=== PATIENT | female | born 1940 | race Caucasian/White ===

== ENCOUNTER 2020-11-17 22:22 | Inpatient (IN) ==
[2020-11-18] MEDS ORDERED: Naloxone 0.4 MG/ML INJ IVP PRN (03:13)
[2020-11-18] MEDS: Ipratropium 1 PUFF INHALER IH SCH ×4 (04:21→20:46)
[2020-11-18 08:57] LABS: Mean Platelet Volume 10.6 fL (9.4-12.4); Red Cell Distribution Width 13.9 % (11.5-14.5)
[2020-11-18 08:58] LABS: Hematocrit 31.4 % (35.3-44.9); Hemoglobin 10.3 g/dL (11.5-15.4); Mean Corpuscular HGB Conc 32.8 g/dL (31.6-35.5); Mean Corpuscular Hemoglobin 28.4 pg (28.0-33.3); Mean Corpuscular Volume 86.5 fL (83.0-100.0); Platelet Count 282 K/mcL (140-400); Red Blood Count 3.63 M/mcL (3.82-4.97); White Blood Count 28.3 K/mcL (4.3-11.1)
[2020-11-18 09:27] LABS: Troponin I 2.22 ng/mL (< 0.04)
[2020-11-18 09:28] LABS: Albumin 3.2 g/dL (3.5-5.7); Albumin/Globulin Ratio 1.1 (1.1-2.2); Bilirubin,Direct 0.1 mg/dL (0.0-0.2); Bilirubin,Indirect 0.2 mg/dL (0.0-1.0); Bilirubin,Total 0.3 mg/dL (0.3-1.0); Globulin 2.9 g/dL (2.4-3.5); Magnesium 1.4 mg/dL (1.6-2.6); Potassium 3.1 mEq/L (3.5-5.1); Total Protein 6.1 g/dL (6.4-8.9)
[2020-11-18 09:44] LABS: Lymphocytes # 1.7 K/mcL (0.6-4.6); Monocytes # 0.6 K/mcL (0.0-1.3); Neutrophils # 25.5 K/mcL (1.6-8.9); Platelet Estimate Normal (Normal)
[2020-11-18] MEDS ORDERED: Perflutren Lipid Microsphere 1.3 ML in 0.9 % Sodium Chloride 8.7 ML IVP PRN (17:48)
[2020-11-19] MEDS: Ipratropium 1 PUFF INHALER IH SCH ×4 (04:33→21:36)
[2020-11-19 08:29] LABS: Troponin I 0.67 ng/mL (< 0.04)
[2020-11-19] MEDS: *HR* Enoxaparin 30 MG/0.3 ML SYRINGE SQ SCH ×2 (09:04→17:38)
[2020-11-19 09:16] LABS: Basophils # 0.1 K/mcL (0.0-0.2); Basophils % 0.3 %; Eosinophils % 0.2 %; Hematocrit 32.3 % (35.3-44.9); Immature Granulocytes % 1.6 % (0-4); Lymphocytes # 0.6 K/mcL (0.6-4.6); Lymphocytes % 3.8 %; Mean Corpuscular Hemoglobin 27.4 pg (28.0-33.3); Mean Corpuscular Volume 88.5 fL (83.0-100.0); Mean Platelet Volume 10.8 fL (9.4-12.4); Monocytes # 0.9 K/mcL (0.0-1.3); Monocytes % 5.6 %; Neutrophils # 14.2 K/mcL (1.6-8.9); Platelet Count 303 K/mcL (140-400); Red Blood Count 3.65 M/mcL (3.82-4.97); Segmented Neutrophils % 88.5 %
[2020-11-19 11:40] LABS: Albumin 3.2 g/dL (3.5-5.7); Albumin/Globulin Ratio 1.1 (1.1-2.2); Bilirubin,Total 0.4 mg/dL (0.3-1.0); Calcium 8.5 mg/dL (8.6-10.3); Globulin 2.8 g/dL (2.4-3.5); Potassium 3.4 mEq/L (3.5-5.1)
[2020-11-19 12:05] LABS: C-Reactive Protein 99 mg/L (Less than 10); Lactate Dehydrogenase 234 Units/L (140-271)
[2020-11-19] MEDS: Cyanocobalamin (B-12) 1,000 MCG TABLET PO SCH (12:16)
[2020-11-19 12:24] LABS: Ferritin 1032 ng/mL (10-120)
[2020-11-19] MEDS ORDERED: *HR* Digoxin 0.5 MG/2 ML AMPUL IVP SCH (12:30)
[2020-11-19] MEDS: Aspirin Enteric Coated 81 MG Tablet PO SCH (13:46)
[2020-11-19] MEDS ORDERED: *HR* Digoxin 0.5 MG/2 ML AMPUL IVP ONE (23:00)
[2020-11-20] MEDS: Ipratropium 1 PUFF INHALER IH SCH ×4 (04:59→20:40)
[2020-11-20] MEDS: *HR* Enoxaparin 30 MG/0.3 ML SYRINGE SQ SCH ×2 (06:25→18:22)
[2020-11-20] MEDS: Aspirin Enteric Coated 81 MG Tablet PO SCH (09:20)
[2020-11-20] MEDS: hydroCHLOROthiazide 25 MG TABLET PO SCH (09:21)
[2020-11-20] MEDS: Cyanocobalamin (B-12) 1,000 MCG TABLET PO SCH (09:21)
[2020-11-20 10:09] LABS: Basophils # 0.1 K/mcL (0.0-0.2); Basophils % 0.8 %; Hematocrit 32.7 % (35.3-44.9); Hemoglobin 10.4 g/dL (11.5-15.4); Immature Granulocytes % 4.9 % (0-4); Lymphocytes # 0.5 K/mcL (0.6-4.6); Lymphocytes % 5.1 %; Mean Corpuscular HGB Conc 31.8 g/dL (31.6-35.5); Mean Corpuscular Hemoglobin 27.5 pg (28.0-33.3); Mean Corpuscular Volume 86.5 fL (83.0-100.0); Mean Platelet Volume 10.3 fL (9.4-12.4); Monocytes # 0.8 K/mcL (0.0-1.3); Monocytes % 8.5 %; Neutrophils # 7.2 K/mcL (1.6-8.9); Platelet Count 305 K/mcL (140-400); Red Blood Count 3.78 M/mcL (3.82-4.97); Segmented Neutrophils % 80.7 %; White Blood Count 8.9 K/mcL (4.3-11.1)
[2020-11-20 10:30] LABS: Albumin 3.1 g/dL (3.5-5.7); Bilirubin,Total 0.4 mg/dL (0.3-1.0); Calcium 8.7 mg/dL (8.6-10.3); Potassium 3.2 mEq/L (3.5-5.1); Total Protein 6.1 g/dL (6.4-8.9)
[2020-11-20] MEDS: Melatonin 3 MG TABLET PO PRN (23:03)
[2020-11-21] MEDS: Ipratropium 1 PUFF INHALER IH SCH ×4 (05:02→20:57)
[2020-11-21] MEDS: *HR* Enoxaparin 30 MG/0.3 ML SYRINGE SQ SCH ×2 (06:05→22:03)
[2020-11-21] MEDS: Aspirin Enteric Coated 81 MG Tablet PO SCH (10:06)
[2020-11-21] MEDS: hydroCHLOROthiazide 25 MG TABLET PO SCH (10:06)
[2020-11-21] MEDS: Cyanocobalamin (B-12) 1,000 MCG TABLET PO SCH (10:07)
[2020-11-21] MEDS: Melatonin 3 MG TABLET PO PRN (22:05)
[2020-11-22] MEDS: Ipratropium 1 PUFF INHALER IH SCH ×4 (04:42→20:45)
[2020-11-22] MEDS: *HR* Enoxaparin 30 MG/0.3 ML SYRINGE SQ SCH ×2 (05:29→18:26)
[2020-11-22 08:48] LABS: BUN/Creatinine Ratio 45 (6-26); Blood Urea Nitrogen 37 mg/dL (8-23); Calcium 8.8 mg/dL (8.6-10.3); Carbon Dioxide 36 mEq/L (23-29); Chloride 93 mEq/L (98-107); Glucose 105 mg/dL (70-105); Osmolality,Calculated 287 (280-300); Potassium 3.7 mEq/L (3.5-5.1); Sodium 134 mEq/L (136-145); eGFR For African Americans > 60 (> 60); eGFR For Non-African Americans > 60 (> 60)
[2020-11-22] MEDS: hydroCHLOROthiazide 25 MG TABLET PO SCH (09:37)
[2020-11-22] MEDS: Cyanocobalamin (B-12) 1,000 MCG TABLET PO SCH (09:38)
[2020-11-22] MEDS: Aspirin Enteric Coated 81 MG Tablet PO SCH (09:38)
[2020-11-22] MEDS: Melatonin 3 MG TABLET PO PRN (21:03)
[2020-11-22 22:18] LABS: Bacteria,Urine Moderate per hpf (None-Few); Bilirubin,Urine Negative (Negative); Blood,Urine Small (Negative); Budding Yeast,Urine Few per hpf (None Seen); Clarity,Urine Turbid (Clear); Color,Urine Yellow (Yellow); Glucose,Urine (UA) Normal (Normal); Ketones,Urine Negative (Negative); Leukocyte Esterase,Urine Large (Negative); Nitrite,Urine Negative (Negative); PH,Urine 6.5 pH Units (5.0-8.0); Protein,Urine 30 mg/dL (Neg-Trace); Renal Epithelial Cells,Urine Few per hpf (None-Few); Specific Gravity,Urine 1.019 (1.010-1.025); Squamous Epithelial Cell,Urine Few per hpf (None-Few); Transitional Epi Cells,Urine Few per hpf (None-Few); Urobilinogen,Urine Normal (Normal); WBC,Urine TNTC per hpf (0-3)
[2020-11-22] MEDS: cephALEXin 500 MG CAPSULE PO SCH (23:33)
[2020-11-23] MEDS: Ipratropium 1 PUFF INHALER IH SCH ×4 (03:46→20:29)
[2020-11-23] MEDS: *HR* Enoxaparin 30 MG/0.3 ML SYRINGE SQ SCH ×2 (05:35→16:33)
[2020-11-23 08:06] LABS: BUN/Creatinine Ratio 47 (6-26); Blood Urea Nitrogen 35 mg/dL (8-23); Calcium 8.7 mg/dL (8.6-10.3); Carbon Dioxide 33 mEq/L (23-29); Chloride 93 mEq/L (98-107); Glucose 88 mg/dL (70-105); Osmolality,Calculated 283 (280-300); Potassium 3.9 mEq/L (3.5-5.1); Sodium 133 mEq/L (136-145); eGFR For African Americans > 60 (> 60); eGFR For Non-African Americans > 60 (> 60)
[2020-11-23] MEDS: Aspirin Enteric Coated 81 MG Tablet PO SCH (10:21)
[2020-11-23] MEDS: Cyanocobalamin (B-12) 1,000 MCG TABLET PO SCH (10:21)
[2020-11-23] MEDS: cephALEXin 500 MG CAPSULE PO SCH ×2 (10:21→20:11)
[2020-11-23] MEDS: hydroCHLOROthiazide 25 MG TABLET PO SCH (10:22)
[2020-11-23] MEDS ORDERED: *HR* Metoprolol 5 MG/5 ML VIAL IVP ONE (14:35)
[2020-11-23] MEDS ORDERED: *HR* Metoprolol 5 MG/5 ML VIAL IVP STA (14:37)
[2020-11-23] MEDS ORDERED: ALPRAZolam 0.5 MG TABLET PO ONE (14:44)
[2020-11-23 19:11] LABS: Magnesium 1.6 mg/dL (1.6-2.6)
[2020-11-23] MEDS: Melatonin 3 MG TABLET PO PRN (20:11)
[2020-11-24] MEDS: Ipratropium 1 PUFF INHALER IH SCH ×4 (04:33→19:43)
[2020-11-24] MEDS: *HR* Enoxaparin 30 MG/0.3 ML SYRINGE SQ SCH ×2 (05:29→17:27)
[2020-11-24] MEDS: Aspirin Enteric Coated 81 MG Tablet PO SCH (08:58)
[2020-11-24] MEDS: Cyanocobalamin (B-12) 1,000 MCG TABLET PO SCH (08:58)
[2020-11-24] MEDS: hydroCHLOROthiazide 25 MG TABLET PO SCH (08:58)
[2020-11-24] MEDS: cephALEXin 500 MG CAPSULE PO SCH ×2 (08:58→20:07)
[2020-11-24] MEDS ORDERED: *HR* Metoprolol 5 MG/5 ML VIAL IVP ONE (13:15)
[2020-11-24] MEDS: *HR* Metoprolol 5 MG/5 ML VIAL IVP PRN (13:26)
[2020-11-24 15:32] LABS: C-Reactive Protein 23 mg/L (Less than 10); Lactate Dehydrogenase 343 Units/L (140-271)
[2020-11-24 17:43] LABS: Ferritin 926 ng/mL (10-120)
[2020-11-25] MEDS: Ipratropium 1 PUFF INHALER IH SCH ×4 (04:16→20:23)
[2020-11-25] MEDS: *HR* Enoxaparin 30 MG/0.3 ML SYRINGE SQ SCH ×2 (05:58→18:02)
[2020-11-25 06:50] LABS: Hematocrit 37.6 % (35.3-44.9); Hemoglobin 11.6 g/dL (11.5-15.4); Mean Corpuscular HGB Conc 30.9 g/dL (31.6-35.5); Mean Corpuscular Volume 87.4 fL (83.0-100.0); Mean Platelet Volume 11.2 fL (9.4-12.4); Platelet Count 173 K/mcL (140-400); Red Cell Distribution Width 13.8 % (11.5-14.5)
[2020-11-25 07:12] LABS: BUN/Creatinine Ratio 52 (6-26); Blood Urea Nitrogen 36 mg/dL (8-23); Calcium 8.5 mg/dL (8.6-10.3); Carbon Dioxide 33 mEq/L (23-29); Chloride 94 mEq/L (98-107); Glucose 81 mg/dL (70-105); Osmolality,Calculated 283 (280-300); Sodium 133 mEq/L (136-145); eGFR For African Americans > 60 (> 60); eGFR For Non-African Americans > 60 (> 60)
[2020-11-25 07:13] LABS: Lactate Dehydrogenase 352 Units/L (140-271)
[2020-11-25 07:27] LABS: Ferritin 898 ng/mL (10-120)
[2020-11-25] MEDS: cephALEXin 500 MG CAPSULE PO SCH ×2 (07:36→20:17)
[2020-11-25] MEDS: Cyanocobalamin (B-12) 1,000 MCG TABLET PO SCH (07:37)
[2020-11-25] MEDS: hydroCHLOROthiazide 25 MG TABLET PO SCH (07:37)
[2020-11-25] MEDS: Aspirin Enteric Coated 81 MG Tablet PO SCH (07:37)
[2020-11-25 12:03] LABS: C-Reactive Protein 23 mg/L (Less than 10)
[2020-11-25] MEDS: Melatonin 3 MG TABLET PO PRN (22:41)
[2020-11-26] MEDS: Ipratropium 1 PUFF INHALER IH SCH ×4 (03:58→20:09)
[2020-11-26] MEDS: *HR* Enoxaparin 30 MG/0.3 ML SYRINGE SQ SCH ×2 (05:14→17:15)
[2020-11-26] MEDS: *HR* HYDROcodone/Acet 5/325 mg TABLET PO PRN ×2 (05:25→21:17)
[2020-11-26 07:40] LABS: Lactate Dehydrogenase 386 Units/L (140-271)
[2020-11-26 07:53] LABS: Ferritin 773 ng/mL (10-120)
[2020-11-26 09:09] LABS: C-Reactive Protein 17 mg/L (Less than 10)
[2020-11-26] MEDS: Cyanocobalamin (B-12) 1,000 MCG TABLET PO SCH (09:58)
[2020-11-26] MEDS: hydroCHLOROthiazide 25 MG TABLET PO SCH (09:58)
[2020-11-26] MEDS: cephALEXin 500 MG CAPSULE PO SCH ×2 (09:58→21:17)
[2020-11-26] MEDS: Aspirin Enteric Coated 81 MG Tablet PO SCH (09:58)
[2020-11-26] MEDS ORDERED: Saline Nasal Spray 44 ML BOTTLE NS PRN (17:09)
[2020-11-26] MEDS: Melatonin 3 MG TABLET PO PRN (21:20)
[2020-11-27] MEDS: Ipratropium 1 PUFF INHALER IH SCH ×5 (04:08→20:27)
[2020-11-27] MEDS: *HR* Enoxaparin 30 MG/0.3 ML SYRINGE SQ SCH ×2 (05:26→18:16)
[2020-11-27] MEDS: Cyanocobalamin (B-12) 1,000 MCG TABLET PO SCH (08:15)
[2020-11-27] MEDS: cephALEXin 500 MG CAPSULE PO SCH (08:15)
[2020-11-27] MEDS: Aspirin Enteric Coated 81 MG Tablet PO SCH (08:15)
[2020-11-27] MEDS: hydroCHLOROthiazide 25 MG TABLET PO SCH (08:15)
[2020-11-27] MEDS: *HR* LORazepam 0.5 MG TABLET PO PRN ×2 (09:59→18:16)
[2020-11-27] MEDS ORDERED: Dexmedetomidine HCl 400 MCG/100 ML MLS IVC SCH (10:45)
[2020-11-27 12:01] LABS: Hematocrit 34.9 % (35.3-44.9); Hemoglobin 11.2 g/dL (11.5-15.4); Mean Corpuscular HGB Conc 32.1 g/dL (31.6-35.5); Mean Corpuscular Volume 87.3 fL (83.0-100.0); Mean Platelet Volume 11.7 fL (9.4-12.4); Platelet Count 239 K/mcL (140-400); Red Cell Distribution Width 13.9 % (11.5-14.5)
[2020-11-27] MEDS: *HR* HYDROcodone/Acet 5/325 mg TABLET PO PRN ×2 (12:10→18:15)
[2020-11-27 12:14] LABS: BUN/Creatinine Ratio 45 (6-26); Blood Urea Nitrogen 38 mg/dL (8-23); Calcium 8.2 mg/dL (8.6-10.3); Carbon Dioxide 29 mEq/L (23-29); Chloride 94 mEq/L (98-107); Glucose 113 mg/dL (70-105); Osmolality,Calculated 278 (280-300); Potassium 4.7 mEq/L (3.5-5.1); Sodium 129 mEq/L (136-145); eGFR For African Americans > 60 (> 60); eGFR For Non-African Americans > 60 (> 60)
[2020-11-27] MEDS ORDERED: Isovue-370 500 ML BOTTLE IVP ONE (12:37)
[2020-11-28] MEDS: Ipratropium 1 PUFF INHALER IH SCH ×4 (03:40→21:23)
[2020-11-28] MEDS: *HR* LORazepam 0.5 MG TABLET PO PRN ×2 (04:30→15:34)
[2020-11-28] MEDS: Saliva Stimulant 44.3ml BOTTLE PO PRN (04:36)
[2020-11-28] MEDS: *HR* Enoxaparin 30 MG/0.3 ML SYRINGE SQ SCH ×2 (07:02→18:09)
[2020-11-28 07:12] LABS: Hematocrit 33.9 % (35.3-44.9); Hemoglobin 10.9 g/dL (11.5-15.4); Mean Corpuscular HGB Conc 32.2 g/dL (31.6-35.5); Mean Corpuscular Volume 87.1 fL (83.0-100.0); Mean Platelet Volume 11.5 fL (9.4-12.4); Platelet Count 275 K/mcL (140-400); Red Blood Count 3.89 M/mcL (3.82-4.97); Red Cell Distribution Width 14.1 % (11.5-14.5); White Blood Count 21.5 K/mcL (4.3-11.1)
[2020-11-28 07:36] LABS: BUN/Creatinine Ratio 49 (6-26); Blood Urea Nitrogen 39 mg/dL (8-23); Calcium 8.4 mg/dL (8.6-10.3); Carbon Dioxide 27 mEq/L (23-29); Chloride 95 mEq/L (98-107); Glucose 80 mg/dL (70-105); Lactate Dehydrogenase 297 Units/L (140-271); Osmolality,Calculated 276 (280-300); Potassium 4.7 mEq/L (3.5-5.1); Sodium 129 mEq/L (136-145); eGFR For African Americans > 60 (> 60); eGFR For Non-African Americans > 60 (> 60)
[2020-11-28 07:48] LABS: Ferritin 726 ng/mL (10-120)
[2020-11-28 09:30] LABS: C-Reactive Protein 16 mg/L (Less than 10)
[2020-11-28] MEDS: Piperacillin/Tazobactam 3.375 GM in 0.9 % Sodium Chloride Mini Bag 100 ML IVPB SCH ×2 (09:35→15:33)
[2020-11-28] MEDS: Cyanocobalamin (B-12) 1,000 MCG TABLET PO SCH (13:06)
[2020-11-28] MEDS: Aspirin Enteric Coated 81 MG Tablet PO SCH (13:06)
[2020-11-29] MEDS: Piperacillin/Tazobactam 3.375 GM in 0.9 % Sodium Chloride Mini Bag 100 ML IVPB SCH ×3 (00:57→18:05)
[2020-11-29] MEDS: *HR* LORazepam 2 MG/ML VIAL IVP PRN (01:21)
[2020-11-29] MEDS: Ipratropium 1 PUFF INHALER IH SCH ×4 (03:47→22:06)
[2020-11-29] MEDS: *HR* Enoxaparin 30 MG/0.3 ML SYRINGE SQ SCH ×2 (05:23→18:05)
[2020-11-29 05:30] LABS: Hematocrit 34.4 % (35.3-44.9); Mean Corpuscular Hemoglobin 27.5 pg (28.0-33.3); Mean Platelet Volume 11.4 fL (9.4-12.4); Platelet Count 303 K/mcL (140-400); White Blood Count 18.9 K/mcL (4.3-11.1)
[2020-11-29 05:51] LABS: BUN/Creatinine Ratio 41 (6-26); Blood Urea Nitrogen 31 mg/dL (8-23); Calcium 8.4 mg/dL (8.6-10.3); Carbon Dioxide 29 mEq/L (23-29); Chloride 96 mEq/L (98-107); Glucose 88 mg/dL (70-105); Osmolality,Calculated 280 (280-300); Potassium 4.1 mEq/L (3.5-5.1); Sodium 132 mEq/L (136-145); eGFR For African Americans > 60 (> 60); eGFR For Non-African Americans > 60 (> 60)
[2020-11-29] MEDS: Aspirin Enteric Coated 81 MG Tablet PO SCH (10:44)
[2020-11-29] MEDS: Cyanocobalamin (B-12) 1,000 MCG TABLET PO SCH (10:45)
[2020-11-30] MEDS: Piperacillin/Tazobactam 3.375 GM in 0.9 % Sodium Chloride Mini Bag 100 ML IVPB SCH ×4 (04:16→19:51)
[2020-11-30] MEDS: Ipratropium 1 PUFF INHALER IH SCH ×4 (04:55→21:30)
[2020-11-30] MEDS: *HR* Enoxaparin 30 MG/0.3 ML SYRINGE SQ SCH ×2 (05:43→16:45)
[2020-11-30 08:17] LABS: Hematocrit 34.4 % (35.3-44.9); Mean Corpuscular Hemoglobin 27.4 pg (28.0-33.3); Mean Corpuscular Volume 85.6 fL (83.0-100.0); Mean Platelet Volume 12.5 fL (9.4-12.4); Platelet Count 337 K/mcL (140-400); Red Blood Count 4.02 M/mcL (3.82-4.97); Red Cell Distribution Width 14.1 % (11.5-14.5); White Blood Count 19.4 K/mcL (4.3-11.1)
[2020-11-30 08:39] LABS: BUN/Creatinine Ratio 38 (6-26); Blood Urea Nitrogen 27 mg/dL (8-23); Calcium 8.4 mg/dL (8.6-10.3); Carbon Dioxide 27 mEq/L (23-29); Chloride 97 mEq/L (98-107); Glucose 113 mg/dL (70-105); Osmolality,Calculated 280 (280-300); Potassium 3.5 mEq/L (3.5-5.1); Sodium 132 mEq/L (136-145); eGFR For African Americans > 60 (> 60); eGFR For Non-African Americans > 60 (> 60)
[2020-11-30] MEDS: *HR* Metoprolol 5 MG/5 ML VIAL IVP PRN (10:00)
[2020-11-30] MEDS: Cyanocobalamin (B-12) 1,000 MCG TABLET PO SCH (11:12)
[2020-11-30] MEDS: Aspirin Enteric Coated 81 MG Tablet PO SCH (11:12)
[2020-11-30] MEDS: Melatonin 3 MG TABLET PO PRN (22:54)
[2020-12-01] MEDS: Ipratropium 1 PUFF INHALER IH SCH ×4 (04:02→22:06)
[2020-12-01] MEDS: *HR* Enoxaparin 30 MG/0.3 ML SYRINGE SQ SCH ×2 (05:15→17:13)
[2020-12-01] MEDS: Piperacillin/Tazobactam 3.375 GM in 0.9 % Sodium Chloride Mini Bag 100 ML IVPB SCH ×4 (05:15→23:26)
[2020-12-01 07:52] LABS: Hematocrit 32.9 % (35.3-44.9); Hemoglobin 10.5 g/dL (11.5-15.4); Mean Corpuscular HGB Conc 31.9 g/dL (31.6-35.5); Mean Corpuscular Hemoglobin 27.1 pg (28.0-33.3); Platelet Count 322 K/mcL (140-400); Red Blood Count 3.87 M/mcL (3.82-4.97); Red Cell Distribution Width 14.3 % (11.5-14.5); White Blood Count 13.4 K/mcL (4.3-11.1)
[2020-12-01 07:59] LABS: INR 1.1; Prothrombin Time 11.7 Seconds (9.4-12.1)
[2020-12-01 08:10] LABS: BUN/Creatinine Ratio 37 (6-26); Blood Urea Nitrogen 28 mg/dL (8-23); Calcium 8.2 mg/dL (8.6-10.3); Carbon Dioxide 27 mEq/L (23-29); Chloride 100 mEq/L (98-107); Glucose 92 mg/dL (70-105); Magnesium 1.5 mg/dL (1.6-2.6); Osmolality,Calculated 283 (280-300); Phosphorous 2.5 mg/dL (2.7-4.5); Potassium 3.9 mEq/L (3.5-5.1); Sodium 134 mEq/L (136-145); eGFR For African Americans > 60 (> 60); eGFR For Non-African Americans > 60 (> 60)
[2020-12-01] MEDS: Aspirin Enteric Coated 81 MG Tablet PO SCH (08:17)
[2020-12-01] MEDS: Cyanocobalamin (B-12) 1,000 MCG TABLET PO SCH (08:17)
[2020-12-01] MEDS: *HR* LORazepam 2 MG/ML VIAL IVP PRN (08:18)
[2020-12-01] MEDS: Melatonin 3 MG TABLET PO PRN (21:04)
[2020-12-02] MEDS: Ipratropium 1 PUFF INHALER IH SCH ×4 (03:50→20:34)
[2020-12-02] MEDS: Piperacillin/Tazobactam 3.375 GM in 0.9 % Sodium Chloride Mini Bag 100 ML IVPB SCH ×2 (06:25→16:13)
[2020-12-02] MEDS: *HR* Enoxaparin 30 MG/0.3 ML SYRINGE SQ SCH ×2 (06:31→17:08)
[2020-12-02 06:41] LABS: Basophils # 0.1 K/mcL (0.0-0.2); Basophils % 0.3 %; Eosinophils % 0.1 %; Hematocrit 33.4 % (35.3-44.9); Hemoglobin 10.7 g/dL (11.5-15.4); Immature Granulocytes % 2.8 % (0-4); Lymphocytes # 1.4 K/mcL (0.6-4.6); Lymphocytes % 9.7 %; Mean Corpuscular Hemoglobin 27.9 pg (28.0-33.3); Mean Platelet Volume 11.9 fL (9.4-12.4); Monocytes # 1.3 K/mcL (0.0-1.3); Monocytes % 8.5 %; Neutrophils # 11.6 K/mcL (1.6-8.9); Platelet Count 289 K/mcL (140-400); Red Blood Count 3.84 M/mcL (3.82-4.97); Red Cell Distribution Width 14.4 % (11.5-14.5); Segmented Neutrophils % 78.6 %; White Blood Count 14.8 K/mcL (4.3-11.1)
[2020-12-02 06:57] LABS: BUN/Creatinine Ratio 35 (6-26); Blood Urea Nitrogen 27 mg/dL (8-23); Calcium 8.2 mg/dL (8.6-10.3); Carbon Dioxide 27 mEq/L (23-29); Chloride 101 mEq/L (98-107); Glucose 91 mg/dL (70-105); Osmolality,Calculated 281 (280-300); Potassium 3.9 mEq/L (3.5-5.1); Sodium 133 mEq/L (136-145); eGFR For African Americans > 60 (> 60); eGFR For Non-African Americans > 60 (> 60)
[2020-12-02] MEDS: Cyanocobalamin (B-12) 1,000 MCG TABLET PO SCH (09:22)
[2020-12-02] MEDS: Aspirin Enteric Coated 81 MG Tablet PO SCH (09:22)
[2020-12-02] MEDS: *HR* Metoprolol 5 MG/5 ML VIAL IVP PRN (23:22)
[2020-12-02] MEDS: *HR* LORazepam 2 MG/ML VIAL IVP PRN (23:22)
[2020-12-03] MEDS: Ipratropium 1 PUFF INHALER IH SCH ×4 (04:07→21:00)
[2020-12-03 05:17] LABS: Basophils % 0.2 %; Eosinophils % 0.2 %; Hematocrit 30.8 % (35.3-44.9); Hemoglobin 10.1 g/dL (11.5-15.4); Immature Granulocytes % 1.8 % (0-4); Lymphocytes % 10.1 %; Mean Corpuscular HGB Conc 32.8 g/dL (31.6-35.5); Mean Corpuscular Hemoglobin 28.1 pg (28.0-33.3); Mean Corpuscular Volume 85.8 fL (83.0-100.0); Monocytes % 8.8 %; Neutrophils # 9.3 K/mcL (1.6-8.9); Platelet Count 260 K/mcL (140-400); Red Blood Count 3.59 M/mcL (3.82-4.97); Red Cell Distribution Width 14.2 % (11.5-14.5); Segmented Neutrophils % 78.9 %; White Blood Count 11.7 K/mcL (4.3-11.1)
[2020-12-03 05:18] LABS: Lymphocytes # 1.2 K/mcL (0.6-4.6)
[2020-12-03 05:38] LABS: BUN/Creatinine Ratio 41 (6-26); Blood Urea Nitrogen 26 mg/dL (8-23); Calcium 7.6 mg/dL (8.6-10.3); Carbon Dioxide 26 mEq/L (23-29); Chloride 103 mEq/L (98-107); Glucose 84 mg/dL (70-105); Osmolality,Calculated 282 (280-300); Potassium 3.6 mEq/L (3.5-5.1); Sodium 134 mEq/L (136-145); eGFR For African Americans > 60 (> 60); eGFR For Non-African Americans > 60 (> 60)
[2020-12-03] MEDS: Cyanocobalamin (B-12) 1,000 MCG TABLET PO SCH (08:59)
[2020-12-03] MEDS: Aspirin Enteric Coated 81 MG Tablet PO SCH (08:59)
[2020-12-04] MEDS: Morphine Sulfate Oral CONC 10 MG/0.5 ML ORAL.SYG SL PRN (01:28)
[2020-12-04] MEDS: *HR* LORazepam 2 MG/ML VIAL IVP PRN ×2 (01:29→21:40)
[2020-12-04] MEDS: Ipratropium 1 PUFF INHALER IH SCH ×4 (04:24→21:37)
[2020-12-04 06:04] LABS: BUN/Creatinine Ratio 48 (6-26); Blood Urea Nitrogen 31 mg/dL (8-23); Calcium 8.2 mg/dL (8.6-10.3); Carbon Dioxide 29 mEq/L (23-29); Chloride 103 mEq/L (98-107); Glucose 91 mg/dL (70-105); Osmolality,Calculated 286 (280-300); Potassium 4.2 mEq/L (3.5-5.1); Sodium 135 mEq/L (136-145); eGFR For African Americans > 60 (> 60); eGFR For Non-African Americans > 60 (> 60)
[2020-12-04 06:18] LABS: Basophils % 0.2 %; Eosinophils # 0.1 K/mcL (0.0-0.6); Eosinophils % 0.8 %; Hemoglobin 10.2 g/dL (11.5-15.4); Immature Granulocytes % 1.7 % (0-4); Lymphocytes # 1.3 K/mcL (0.6-4.6); Lymphocytes % 9.9 %; Mean Corpuscular HGB Conc 31.9 g/dL (31.6-35.5); Mean Corpuscular Volume 87.9 fL (83.0-100.0); Mean Platelet Volume 12.7 fL (9.4-12.4); Monocytes % 7.8 %; Neutrophils # 10.3 K/mcL (1.6-8.9); Platelet Count 265 K/mcL (140-400); Red Blood Count 3.64 M/mcL (3.82-4.97); Red Cell Distribution Width 14.5 % (11.5-14.5); Segmented Neutrophils % 79.6 %; White Blood Count 12.9 K/mcL (4.3-11.1)
[2020-12-04] MEDS: Aspirin Enteric Coated 81 MG Tablet PO SCH (09:33)
[2020-12-04] MEDS: Cyanocobalamin (B-12) 1,000 MCG TABLET PO SCH (09:33)
[2020-12-04] MEDS: Saliva Stimulant 44.3ml BOTTLE PO PRN (21:45)
[2020-12-05] MEDS: Morphine Sulfate Oral CONC 10 MG/0.5 ML ORAL.SYG SL PRN ×2 (04:02→12:11)
[2020-12-05] MEDS: Ipratropium 1 PUFF INHALER IH SCH ×4 (04:10→20:36)
[2020-12-05 06:55] LABS: Basophils % 0.1 %; Eosinophils # 0.2 K/mcL (0.0-0.6); Hematocrit 32.4 % (35.3-44.9); Hemoglobin 10.2 g/dL (11.5-15.4); Lymphocytes # 1.1 K/mcL (0.6-4.6); Lymphocytes % 6.2 %; Mean Corpuscular HGB Conc 31.5 g/dL (31.6-35.5); Mean Corpuscular Hemoglobin 27.7 pg (28.0-33.3); Mean Platelet Volume 12.3 fL (9.4-12.4); Monocytes # 0.9 K/mcL (0.0-1.3); Monocytes % 5.3 %; Neutrophils # 15.5 K/mcL (1.6-8.9); Platelet Count 197 K/mcL (140-400); Red Blood Count 3.68 M/mcL (3.82-4.97); Red Cell Distribution Width 14.6 % (11.5-14.5); Segmented Neutrophils % 86.4 %; White Blood Count 17.9 K/mcL (4.3-11.1)
[2020-12-05 07:05] LABS: BUN/Creatinine Ratio 68 (6-26); Blood Urea Nitrogen 36 mg/dL (8-23); Calcium 8.3 mg/dL (8.6-10.3); Carbon Dioxide 26 mEq/L (23-29); Chloride 105 mEq/L (98-107); Glucose 90 mg/dL (70-105); Osmolality,Calculated 290 (280-300); Potassium 4.8 mEq/L (3.5-5.1); Sodium 136 mEq/L (136-145); eGFR For African Americans > 60 (> 60); eGFR For Non-African Americans > 60 (> 60)
[2020-12-05] MEDS: Cyanocobalamin (B-12) 1,000 MCG TABLET PO SCH (08:58)
[2020-12-05] MEDS: Aspirin Enteric Coated 81 MG Tablet PO SCH (08:59)
[2020-12-05] MEDS: *HR* LORazepam 2 MG/ML VIAL IVP PRN (12:11)
[2020-12-06] MEDS: *HR* LORazepam 2 MG/ML VIAL IVP PRN ×3 (00:32→16:16)
[2020-12-06] MEDS: Ipratropium 1 PUFF INHALER IH SCH ×4 (04:32→22:45)
[2020-12-06 07:23] LABS: Basophils % 0.1 %; Eosinophils # 0.1 K/mcL (0.0-0.6); Eosinophils % 0.4 %; Hematocrit 32.6 % (35.3-44.9); Hemoglobin 10.1 g/dL (11.5-15.4); Immature Granulocytes % 0.7 % (0-4); Lymphocytes # 1.1 K/mcL (0.6-4.6); Lymphocytes % 5.9 %; Mean Corpuscular Volume 87.2 fL (83.0-100.0); Mean Platelet Volume 11.9 fL (9.4-12.4); Monocytes # 0.8 K/mcL (0.0-1.3); Monocytes % 4.3 %; Neutrophils # 16.5 K/mcL (1.6-8.9); Platelet Count 163 K/mcL (140-400); Red Blood Count 3.74 M/mcL (3.82-4.97); Red Cell Distribution Width 14.6 % (11.5-14.5); Segmented Neutrophils % 88.6 %; White Blood Count 18.6 K/mcL (4.3-11.1)
[2020-12-06 07:45] LABS: BUN/Creatinine Ratio 56 (6-26); Blood Urea Nitrogen 30 mg/dL (8-23); Calcium 8.5 mg/dL (8.6-10.3); Carbon Dioxide 29 mEq/L (23-29); Chloride 102 mEq/L (98-107); Glucose 85 mg/dL (70-105); Osmolality,Calculated 283 (280-300); Potassium 4.4 mEq/L (3.5-5.1); Sodium 134 mEq/L (136-145); eGFR For African Americans > 60 (> 60); eGFR For Non-African Americans > 60 (> 60)
[2020-12-06] MEDS: Aspirin Enteric Coated 81 MG Tablet PO SCH (07:58)
[2020-12-06] MEDS: Cyanocobalamin (B-12) 1,000 MCG TABLET PO SCH (07:59)
[2020-12-06] MEDS: Morphine Sulfate Oral CONC 10 MG/0.5 ML ORAL.SYG SL PRN (11:56)
[2020-12-07] MEDS: Melatonin 3 MG TABLET PO PRN (01:53)
[2020-12-07] MEDS: Ipratropium 1 PUFF INHALER IH SCH ×4 (04:06→22:27)
[2020-12-07 06:36] LABS: Basophils % 0.1 %; Hematocrit 31.9 % (35.3-44.9); Hemoglobin 10.1 g/dL (11.5-15.4); Immature Granulocytes % 0.7 % (0-4); Immature Platelets 10.6 % (1.1-6.1); Lymphocytes # 0.8 K/mcL (0.6-4.6); Lymphocytes % 4.7 %; Mean Corpuscular HGB Conc 31.7 g/dL (31.6-35.5); Mean Corpuscular Hemoglobin 27.7 pg (28.0-33.3); Mean Corpuscular Volume 87.6 fL (83.0-100.0); Mean Platelet Volume 12.9 fL (9.4-12.4); Monocytes # 0.7 K/mcL (0.0-1.3); Monocytes % 4.2 %; Neutrophils # 14.7 K/mcL (1.6-8.9); Platelet Count 140 K/mcL (140-400); Red Blood Count 3.64 M/mcL (3.82-4.97); Red Cell Distribution Width 14.8 % (11.5-14.5); Segmented Neutrophils % 90.3 %; White Blood Count 16.3 K/mcL (4.3-11.1)
[2020-12-07 06:53] LABS: BUN/Creatinine Ratio 56 (6-26); Blood Urea Nitrogen 34 mg/dL (8-23); Calcium 8.4 mg/dL (8.6-10.3); Carbon Dioxide 27 mEq/L (23-29); Chloride 101 mEq/L (98-107); Glucose 101 mg/dL (70-105); Osmolality,Calculated 286 (280-300); Potassium 4.6 mEq/L (3.5-5.1); Sodium 134 mEq/L (136-145); eGFR For African Americans > 60 (> 60); eGFR For Non-African Americans > 60 (> 60)
[2020-12-07] MEDS: Cyanocobalamin (B-12) 1,000 MCG TABLET PO SCH (08:17)
[2020-12-07] MEDS: Aspirin Enteric Coated 81 MG Tablet PO SCH (08:18)
[2020-12-07] MEDS: *HR* LORazepam 2 MG/ML VIAL IVP PRN (10:18)
[2020-12-07] MEDS ORDERED: haloperidoL 1 MG TABLET PO PRN (11:47)
[2020-12-07] MEDS: Morphine Sulfate Oral CONC 10 MG/0.5 ML ORAL.SYG SL PRN (13:39)
[2020-12-07] MEDS: Dexmedetomidine HCl 400 MCG/100 ML MLS IVC SCH (13:40)
[2020-12-08] MEDS: Ipratropium 1 PUFF INHALER IH SCH ×4 (03:58→19:52)
[2020-12-08 07:19] LABS: Basophils % 0.1 %; Eosinophils % 0.1 %; Red Cell Distribution Width 14.7 % (11.5-14.5)
[2020-12-08 07:21] LABS: Hematocrit 32.1 % (35.3-44.9); Immature Granulocytes % 0.6 % (0-4); Immature Platelets 10.2 % (1.1-6.1); Lymphocytes # 0.7 K/mcL (0.6-4.6); Lymphocytes % 6.2 %; Mean Corpuscular HGB Conc 31.2 g/dL (31.6-35.5); Mean Corpuscular Hemoglobin 27.1 pg (28.0-33.3); Mean Platelet Volume 13.4 fL (9.4-12.4); Monocytes # 0.6 K/mcL (0.0-1.3); Monocytes % 5.2 %; Neutrophils # 10.2 K/mcL (1.6-8.9); Platelet Count 132 K/mcL (140-400); Red Blood Count 3.69 M/mcL (3.82-4.97); Segmented Neutrophils % 87.8 %; White Blood Count 11.6 K/mcL (4.3-11.1)
[2020-12-08 07:35] LABS: BUN/Creatinine Ratio 57 (6-26); Blood Urea Nitrogen 31 mg/dL (8-23); Calcium 8.5 mg/dL (8.6-10.3); Carbon Dioxide 24 mEq/L (23-29); Chloride 101 mEq/L (98-107); Glucose 78 mg/dL (70-105); Osmolality,Calculated 279 (280-300); Potassium 4.8 mEq/L (3.5-5.1); Sodium 132 mEq/L (136-145); eGFR For African Americans > 60 (> 60); eGFR For Non-African Americans > 60 (> 60)
[2020-12-08] MEDS: Aspirin Enteric Coated 81 MG Tablet PO SCH (09:08)
[2020-12-08] MEDS: Cyanocobalamin (B-12) 1,000 MCG TABLET PO SCH (09:08)
[2020-12-08] MEDS: *HR* LORazepam 2 MG/ML VIAL IVP PRN ×2 (09:13→21:30)
[2020-12-08] MEDS: Morphine Sulfate Oral CONC 10 MG/0.5 ML ORAL.SYG SL PRN ×2 (11:19→13:04)
[2020-12-08] MEDS ORDERED: Haloperidol Lactate 5 MG/ML VIAL IVP ONE (12:02)
[2020-12-08] MEDS: Ipratropium/Albuterol Neb 3 ML IH SCH ×3 (16:07→19:51)
[2020-12-08] MEDS: Melatonin 3 MG TABLET PO PRN (21:30)
[2020-12-09] MEDS: *HR* LORazepam 2 MG/ML VIAL IVP PRN ×4 (02:18→22:02)
[2020-12-09] MEDS: Ipratropium/Albuterol Neb 3 ML IH SCH ×4 (03:38→20:15)
[2020-12-09] MEDS: Morphine Sulfate Oral CONC 10 MG/0.5 ML ORAL.SYG SL PRN ×2 (08:40→14:48)
[2020-12-09] MEDS: Dexmedetomidine HCl 400 MCG/100 ML MLS IVC SCH (08:44)
[2020-12-09] MEDS: Aspirin Enteric Coated 81 MG Tablet PO SCH (09:15)
[2020-12-09] MEDS: Cyanocobalamin (B-12) 1,000 MCG TABLET PO SCH (09:16)
[2020-12-09] MEDS ORDERED: Haloperidol Lactate 5 MG/ML VIAL IVP ONE (15:22)
[2020-12-10] MEDS: Morphine Sulfate Oral CONC 10 MG/0.5 ML ORAL.SYG SL PRN (01:09)
[2020-12-10] MEDS: Dexmedetomidine HCl 400 MCG/100 ML MLS IVC SCH (01:14)
[2020-12-10] MEDS: *HR* LORazepam 2 MG/ML VIAL IVP PRN ×5 (02:42→12:03)
[2020-12-10] MEDS: Ipratropium/Albuterol Neb 3 ML IH SCH ×3 (03:41→19:24)
[2020-12-10 04:35] VITALS: BP 142/69; PULSE 94; TEMP 98.6; O2SAT 89
[2020-12-10] MEDS: Aspirin Enteric Coated 81 MG Tablet PO SCH (08:27)
[2020-12-10] MEDS: Cyanocobalamin (B-12) 1,000 MCG TABLET PO SCH (08:28)
[2020-12-10] MEDS: Morphine Sulfate 2 MG/ML SYRINGE IVP PRN ×3 (09:22→12:03)
== END 2020-12-10 14:15 | disposition expired | DRG 177 ==
LOC: 3NENU → SUATTDRO 11-18 05:50
PROVIDERS: ADMIT Student in an Organized Health Care Education/Training Program; ATTEND Student in an Organized Health Care Education/Training Program